=== PATIENT | male | born 1940 | race American Indian/Alaskan Native ===

== ENCOUNTER 2017-03-12 08:44 | Day surgery (SDC) | payer MEDICARE, OTHER ==
[~2017-03-12] VITALS: Ht 190.5 cm; Wt 98.4 kg
[2017-03-12 10:45] VITALS: BP 136/74; PULSE 77; TEMP 98.3
[2017-03-12] MEDS ORDERED: NEURONTIN300 MG/CAP PO (10:52)
[2017-03-12] MEDS ORDERED: MOBIC15 MG PO (10:52)
[2017-03-12] MEDS ORDERED: HUMIRA40 MG/0.8 SQ (10:53)
[2017-03-12] MEDS ORDERED: PROAIR HFA0.09 MG/AC IH (10:53)
[2017-03-12] MEDS ORDERED: RT ADVAIR HFA 1112 G IH (10:53)
[2017-03-12] MEDS ORDERED: PRINIVIL20 MG PO (10:54)
[2017-03-12] MEDS ORDERED: LIPITOR 40MG TA40 MG PO (10:54)
[2017-03-12] MEDS ORDERED: MASON NATURAL2000 IU PO (10:55)
[2017-03-12] MEDS ORDERED: ASPIRIN 81M81 MG/TA2 PO (10:56)
[2017-03-12 13:30] VITALS: BP 136/62; PULSE 67; TEMP 98.1
[2017-03-12] MEDS ORDERED: NORCO 325 MG-51 TAB PO (13:39)
[2017-03-12] MEDS ORDERED: PYRIDIUM200 M1 (13:40)
[2017-03-12] MEDS ORDERED: COLACE 100100 MG/CAP PO (13:40)
[2017-03-12 13:45] VITALS: BP 138/62; PULSE 67
[2017-03-12 14:00] VITALS: BP 122/64; PULSE 70
[2017-03-12 14:06] VITALS: TEMP 98.1
[2017-03-12 14:15] VITALS: BP 134/69; PULSE 71
== END 2017-03-12 14:20 | disposition home or self-care (01) ==
LOC: SDCO 08:44
DX: C67.2 Malignant neoplasm of lateral wall of bladder (principal); C67.0 Malignant neoplasm of trigone of bladder; C67.6 Malignant neoplasm of ureteric orifice; N40.0 Benign prostatic hyperplasia without lower urinary tract symptoms; I10 Essential (primary) hypertension; J44.9 Chronic obstructive pulmonary disease, unspecified; E11.9 Type 2 diabetes mellitus without complications; E78.5 Hyperlipidemia, unspecified; M06.9 Rheumatoid arthritis, unspecified; Z86.73 Personal history of transient ischemic attack (TIA), and cerebral infarction without residual deficits; Z87.891 Personal history of nicotine dependence
CPT/HCPCS: C1769; C2617; J0690; J1100; J1885; J2405; J2704; J2765; J3010; J7030; Q9967

== ENCOUNTER 2018-01-21 23:24 | Inpatient (IN) | payer MEDICARE, OTHER ==
[~2018-01-21] VITALS: Ht 190.5 cm; Wt 104.4 kg
[~2018-01-21 23:24] MED LIST: ASPIRIN 81M81 MG/TA2 PO; COLACE 100100 MG/CAP PO; HUMIRA40 MG/0.8 SQ; LIPITOR 40MG TA40 MG PO; MASON NATURAL2000 IU PO; MOBIC15 MG PO; NEURONTIN300 MG/CAP PO; NORCO 325 MG-51 TAB PO; PRINIVIL20 MG PO; PROAIR HFA0.09 MG/AC IH; PYRIDIUM200 M1; RT ADVAIR HFA 1112 G IH
[2018-01-22] VITALS (294 sets, daily range): BP systolic 120–180; BP diastolic 42–83; PULSE 72–84; TEMP 97.5–101.7; O2SAT 91–99
[2018-01-22 03:01] LABS: HEMOGLOBIN 12.3 g/dl (13.5-18.0); MEAN CELL VOLUME 84 fl (80.0-100.0); MEAN CORPUSCULAR HEMOGLOBIN 29 pg (27.0-31.0); MEAN CORPUSCULAR HGB CONC 34 g/dl (33.0-37.0); MEAN PLATELET VOLUME 8.6 fl (7.4-10.4); PLATELET COUNT 271 K/mm3 (130-400); REDCELL DISTRIBUTION WIDTH-CV 12.8 % (11.5-14.5)
[2018-01-22 03:03] LABS: HEMATOCRIT 36.2 % (42.0-52.0)
[2018-01-22 03:11] LABS: ALBUMIN 3.1 gm/dL (3.5-5.0); BILIRUBIN,TOTAL 0.6 mg/dL (0.0-1.0); CALCIUM 8.3 mg/dL (8.4-10.2); POTASSIUM 4.3 mmol/L (3.4-5.0); TOTAL PROTEIN 6.5 gm/dL (6.4-8.2)
[2018-01-22] MEDS ORDERED: ADVIL LIQUI-GE200 MG PO (03:23)
[2018-01-22] MEDS ORDERED: TIROSINT50 MC1 PO (03:24)
[2018-01-22] MEDS ORDERED: SPRITAM500 MG PO (03:25)
[2018-01-22] MEDS ORDERED: VITAMIN D31000 I1 PO (03:26)
[2018-01-22] MEDS ORDERED: NEURONTIN100 MG/CAP PO (03:28)
[2018-01-22] MEDS ORDERED: RT ADVAIR 528 DISKUS IH ×2 (03:28→03:29)
[2018-01-22] MEDS ORDERED: ZYRTEC ALLERGY10 MG PO (03:30)
[2018-01-22 03:32] LABS: LYMPHOCYTE 22 % (20.0-51.0); NEUTROPHILS 71 % (42.0-75.2)
[2018-01-22 03:34] LABS: PLATELET ESTIMATE NORMAL (NORMAL)
[2018-01-22 04:13] LABS: PH 5 (5-8); SQUAMOUS EPITHELIAL None Seen /hpf; URINE APPEARANCE Clear; URINE BACTERIA None Seen /hpf; URINE BILIRUBIN Negative (NEGATIVE); URINE BLOOD Negative (NEGATIVE); URINE COLOR Straw; URINE GLUCOSE Negative (NEGATIVE); URINE KETONE Negative (NEGATIVE); URINE LEUKOCYTE ESTERASE Negative (NEGATIVE); URINE NITRATE Negative (NEGATIVE); URINE PROTEIN(semi-quant) Negative (NEGATIVE); URINE RBC 0-2 /hpf; URINE UROBILINOGEN Negative (NEGATIVE)
[2018-01-22 04:42] LABS: COLLECTION METHOD CLEAN CATCH
[2018-01-23 04:01] VITALS: BP 151/63; PULSE 84; TEMP 98.9
[2018-01-23 07:40] VITALS: BP 108/48; PULSE 70; TEMP 97.9
[2018-01-23 07:50] LABS: BASO % 0.3 % (0.0-2.0); EOS # 0.3 (0.0-0.7); EOS % 2.6 % (0-4.0); GRAN # 8.7 (1.4-6.5); GRAN % 68.4 % (42.2-75.2); HEMOGLOBIN 11.4 g/dl (13.5-18.0); LYMPH # 2.1 (1.2-3.4); LYMPH % 16.8 % (20.0-51.0); MEAN CELL VOLUME 85 fl (80.0-100.0); MEAN CORPUSCULAR HEMOGLOBIN 28 pg (27.0-31.0); MEAN CORPUSCULAR HGB CONC 33 g/dl (33.0-37.0); MONO # 1.5 (0.1-0.6); MONO % 11.6 % (1.7-9.3); PLATELET COUNT 263 K/mm3 (130-400); RED BLOOD COUNT 4.03 M/mm3 (4.20-5.60); REDCELL DISTRIBUTION WIDTH-CV 12.7 % (11.5-14.5)
[2018-01-23 08:01] LABS: HEMATOCRIT 34.3 % (42.0-52.0)
[2018-01-23 08:02] LABS: CALCIUM 8.4 mg/dL (8.4-10.2); POTASSIUM 4.1 mmol/L (3.4-5.0)
[2018-01-23 11:35] VITALS: BP 108/53; PULSE 75; TEMP 98.6
[2018-01-23 15:35] VITALS: BP 152/66; PULSE 85; TEMP 98.1
[2018-01-23 19:20] VITALS: BP 138/54; PULSE 73; TEMP 99.1
[2018-01-24] VITALS (7 sets, daily range): BP systolic 112–140; BP diastolic 51–74; PULSE 70–90; TEMP 97.2–99.2
[2018-01-24 06:56] LABS: BASO % 0.3 % (0.0-2.0); EOS # 0.4 (0.0-0.7); GRAN # 5.8 (1.4-6.5); GRAN % 62.3 % (42.2-75.2); LYMPH # 1.9 (1.2-3.4); LYMPH % 20.6 % (20.0-51.0); MEAN CELL VOLUME 86 fl (80.0-100.0); MEAN CORPUSCULAR HEMOGLOBIN 28 pg (27.0-31.0); MEAN CORPUSCULAR HGB CONC 33 g/dl (33.0-37.0); MONO # 1.2 (0.1-0.6); MONO % 12.5 % (1.7-9.3); PLATELET COUNT 247 K/mm3 (130-400); RED BLOOD COUNT 3.91 M/mm3 (4.20-5.60); REDCELL DISTRIBUTION WIDTH-CV 12.7 % (11.5-14.5)
[2018-01-24 07:02] LABS: HEMATOCRIT 33.5 % (42.0-52.0)
[2018-01-25 05:18] VITALS: BP 121/54; PULSE 65; TEMP 98.1
[2018-01-25 06:52] LABS: BASO % 0.1 % (0.0-2.0); EOS # 0.2 (0.0-0.7); EOS % 3.1 % (0-4.0); GRAN # 4.5 (1.4-6.5); GRAN % 62.1 % (42.2-75.2); HEMOGLOBIN 11.2 g/dl (13.5-18.0); LYMPH # 1.9 (1.2-3.4); LYMPH % 26.6 % (20.0-51.0); MEAN CELL VOLUME 86 fl (80.0-100.0); MEAN CORPUSCULAR HEMOGLOBIN 28 pg (27.0-31.0); MEAN CORPUSCULAR HGB CONC 33 g/dl (33.0-37.0); MEAN PLATELET VOLUME 8.8 fl (7.4-10.4); MONO # 0.6 (0.1-0.6); MONO % 7.8 % (1.7-9.3); PLATELET COUNT 262 K/mm3 (130-400); RED BLOOD COUNT 3.95 M/mm3 (4.20-5.60); REDCELL DISTRIBUTION WIDTH-CV 12.6 % (11.5-14.5)
[2018-01-25 06:56] LABS: HEMATOCRIT 33.8 % (42.0-52.0)
[2018-01-25 07:00] LABS: CALCIUM 7.9 mg/dL (8.4-10.2); CREATININE, serum 0.91 mg/dL (0.66-1.25); POTASSIUM 4.2 mmol/L (3.4-5.0)
[2018-01-25 08:09] VITALS: BP 105/43; PULSE 83; TEMP 97.9
[2018-01-25] MEDS ORDERED: CIPRO 500MG TA500 MG PO (10:59)
[2018-01-25] MEDS ORDERED: FLAGYL500 MG PO (11:00)
== END 2018-01-25 11:34 | disposition home or self-care (01) | DRG 872 ==
LOC: SURG 23:24 → ICU 01-22 02:31 → SURG 01-22 11:16
PROVIDERS: Family Medicine; Nurse Practitioner Family; Physician Assistant; Surgery
DX: A41.9 Sepsis, unspecified organism (principal); A09 Infectious gastroenteritis and colitis, unspecified; E87.1 Hypo-osmolality and hyponatremia; Z66 Do not resuscitate; I10 Essential (primary) hypertension; J44.9 Chronic obstructive pulmonary disease, unspecified; E11.9 Type 2 diabetes mellitus without complications; Z85.51 Personal history of malignant neoplasm of bladder; M06.9 Rheumatoid arthritis, unspecified; Z87.891 Personal history of nicotine dependence; Z85.46 Personal history of malignant neoplasm of prostate
CPT/HCPCS: 99223-AI; 99232-AI; 99239; A9284; J0744; J1170; J7030; Q9967